=== PATIENT | male | born 2000 | race Caucasian/White ===

== ENCOUNTER 2024-02-01 20:29 | Emergency (ER) | payer SELFPAY ==
[2024-02-01 20:30] VITALS: BP 123/65; PULSE 107; RESP 18; TEMP 36.6; O2SAT 100; BMI 25.7
--- NOTE | 2024-02-01 20:41 | XR_ITS ---
PROCEDURE INFORMATION: Exam: XR Right Hand Exam date and time: 02/01/2024 8:44 PM Age: 23 years old Clinical indication: Injury or trauma; Other: Got mad, punched door; Blunt trauma (contusions or hematomas); Hand; Right; Patient HX: Patient got mad, punched door. ; Additional info: Hand swelling and pain TECHNIQUE: Imaging protocol: Radiologic exam of the right hand. Views: 3 or more views. COMPARISON: No relevant prior studies available. FINDINGS: Bones/joints: Comminuted fracture of the distal right 4th metacarpal head and segmental fractures of the right 5th metacarpal head. Soft tissues: Normal. IMPRESSION: 1. Fracture of the 4th metacarpal head. 2. Boxer's fracture of the 5th metacarpal head with comminution.
--- NOTE | 2024-02-01 21:15 | HMH.EDGENADL ---
Discharge Plan Disposition Patient Disposition: Home, Self-Care Prescriptions Prescriptions: No Action No Known Home Medications Referrals Follow up/Referrals: Isma Flores DO [Staff Physician] - See instructions Provider,Referral, [Primary Care Provider] - See instructions Activity Restrictions/Add. Instructions Additional Instructions/Restrictions: Take Tylenol 1000 mg every 6 hours (4 times daily) and ibuprofen 400 mg every 6 hours (4 times daily) as needed with food and water to prevent GI upset and kidney damage. Call Dr. Alcantara's office tomorrow for an appointment on 02/02. Clinical Impressions Clinical Impression: Open boxer's fracture Qualifiers: Encounter type: initial encounter Qualified Code(s): S62.339B - Displaced fracture of neck of unspecified metacarpal bone, initial encounter for open fracture Stand Alone Forms Stand Alone Forms: Work/School Release Discharge ED Provider: Nadeem Khoury General Adult HPI General Chief complaint: Extremity Injury, Upper Stated complaint: AO 01/31, right hand swelling Time Seen by Provider: 02/01/24 20:32 Mode of Arrival: Ambulatory Source of Information: Patient Limitations: No Limitations Description of Symptoms (Recalled from ER Triage Doc. by RN): Patient punched a doorway while frustrated about noon today. Had hand wrapped, pain increased in the evening. Swelling and pain. Sensation intact. Capillary refill of distal fingers < 3 seconds. History of Present Illness HPI narrative: 23-year-old male no relevant medical history presenting with right hand injury. States is frustrated, punched the wall and hit the door frame. Had significant pain and swelling since that time. Came in for further evaluation. Has taken ibuprofen with minimal relief. Please note that above description of symptoms, in this electronic medical record under categorization of recalled from ER triage doctor by RN are reflective of an initial nursing assessment, however, is not reflective of my full history and physical exam that was personally taken and clarified. Consequentially, this preceding description of symptoms, which may include the patient's categorized chief complaint in the EMR, do not reflect my personal clinical impression, and the ultimate description of history of present illness and patient stated complaints should be deferred to this section of the note. Unless stated otherwise or congruent with this section of the note, additional signs, symptoms, or incongruence should be interpreted as inaccurate with my clinical impression. Related Data Home Medications Medication Instructions Recorded Confirmed No Known Home Medications 09/01/18 09/01/18 Allergies Allergy/AdvReac Type Severity Reaction Status Date / Time INGREDIENT: NO KNOWN - NO Allergy Unknown Uncoded 09/01/18 15:13 KNOWN DRUG ALLERGY [facility] Disclaimer: The information contained in this section may have been updated after the patient was seen, as this information can be updated by other users. Social History Smoking Status: Current every day smoker alcohol intake: never substance use type: denies use current occupational status: student Travel in the last 8 weeks: None ROS Obtained: Yes All systems reviewed & no additional complaints except as documented Physical Exam General General appearance: alert and in no apparent distress Head Head exam: atraumatic and normocephalic Eye Eye exam: Present normal appearance, PERRL and EOMI ENT ENT exam: Present mucous membranes moist Neck Neck exam: Present normal inspection, full ROM and trachea midline Respiratory Respiratory exam: Absent respiratory distress, wheezes, stridor, accessory muscle use or prolonged expiratory phase Cardiovascular Cardiovascular exam: Present normal rhythm Abdominal Exam Abdominal exam: Present soft; Absent distention, tenderness, guarding, rebound or rigidity Extremities Exam Extremities exam: Present edema and other (Obvious deformity fourth and fifth metacarpals. Appears to be an open fracture at distal right fifth metacarpal. Range of motion intact) Neurological Exam Neurological exam: Present alert, oriented X3, CN II-XII intact and normal gait; Absent motor sensory deficit Skin Skin exam: Present warm and dry; Absent diaphoresis or erythema Medical Decision Making Medical Records Medical records reviewed: Yes I reviewed the patient's medical records. Anthony Inquiry Pt receiving controlled substance: No Anthony was queried for this patient: No Vital Signs: 02/01/24 20:30 02/01/24 22:18 Temperature 97.9 F 98.3 F Temperature Source Oral Oral Pulse Rate 69 Pulse Rate [Left Radial] 107 H Respiratory Rate 18 16 Blood Pressure 114/54 L Blood Pressure [Right Arm] 123/65 Blood Pressure Mean [Right Arm] 84 Blood Pressure Source Automatic Cuff Blood Pressure Position Sitting 02 Sat by Pulse Oximetry 100 Oxygen Delivery Method Room Air Room Air Orders (Tests/Meds): ED MEDICATIONS Discontinued Medications Generic Name Dose Route Start Last Admin Trade Name Freq PRN Reason Stop Dose Admin Cefazolin Sodium 2 gm 02/01/24 21:12 02/01/24 21:27 Cefazolin 2gm Vial IV 02/01/24 21:13 2 gm ONCE ONE Administration Ketamine HCl 20 mg 02/01/24 21:12 02/01/24 21:26 Ketamine 50mg/1ml Syringe IV 02/01/24 21:13 20 mg ONCE ONE Administration Lidocaine HCl 20 ml 02/01/24 21:12 02/01/24 22:15 Lidocaine 1% 20ml Mdv SQ 02/01/24 21:13 20 ml ONCE ONE Administration Ondansetron HCl 4 mg 02/01/24 21:12 02/01/24 21:22 Ondansetron 4mg/2ml Vial IV 02/01/24 21:13 4 mg ONCE ONE Administration ORDERS Category Date Time Status Hand XR right minimum 3 views [XR hand RT min 3V] Stat Exams 02/01/24 20:41 Completed Medical Decision Narrative: 23-year-old male no relevant medical history presenting with right hand injury. States is frustrated, punched the wall and hit the door frame. Had significant pain and swelling since that time. Came in for further evaluation. Has taken ibuprofen with minimal relief.. It should be noted that patient has , which is currently not at goal and complicates care. History was obtained via conversation with patient and significant other. On arrival, patient hemodynamically stable, alert, oriented x4, appropriate, GCS 15, moving all extremities spontaneously, pupils equal and reactive to light. Full physical exam performed and significant for significant swelling, open fracture. and obvious deformity of the right 4th and 5th metacarpal. Patient was given hematoma block with lidocaine, 20 mg ketamine, Zofran, 2 g Ancef for symptomatic management and correction of underlying abnormalities. Workup independently interpreted and significant for open fracture right fifth metacarpal and displaced, angulated fracture right fourth metacarpal. See radiology read for full review of final results. Orthopedist on-call was contacted, recommended cleaning, splinting, follow-up 2 days from now on 02/02. Patient was cleaned up, washed out, splinted in ulnar gutter splint with some dissociative ketamine. Given patient presentation, workup, history, this most likely represents open fracture right fifth metacarpal and right fourth metacarpal due to punching injury. Conversation was had with patient regarding home-going pain meds. Opted out of oxycodone and narcotic pain medication, I feel this is reasonable. Was given follow-up with orthopedics. Because patient at baseline without signs or symptoms of clinical decompensation, deemed appropriate for discharge. Results were relayed to patient who voiced understanding and were agreeable to outpatient management and follow up. I discussed my clinical impression with patient and answered all questions. At this time, the evidence for any other entities in the differential is insufficient to warrant any further testing or ED observation. This was explained as well. Advisory was given that persistent or worsening symptoms require further evaluation. I confirmed the understanding of this discussion. Procedures Orthopedic Fracture Reduction Fracture #1: Time Out Performed: No Side: right Fracture Reduction Location: metacarpal Analgesia: hematoma block Technique: direct manipulation Post-reduction neuro exam: intact and no change Post-reduction vascular exam: intact and no change Splint Applied: Yes Patient Tolerated Procedure: well Orthopedic Splinting/Casting Injury #1: Side: right Upper Extremity Injury Location: hand Upper Extremity Immobilizer: ulnar gutter Post Cast/Splinting Neuro Status: intact and no change Post Cast/Splinting Vasc Status: intact and no change Critical Care Critical Care Time Critical Care Time: No
[2024-02-01] MEDS: ONDANSETRON 4MG/2ML VIAL 4 MG IV (21:22)
--- NOTE | 2024-02-01 21:24 | PC.NURSE ---
Spoke with Sai with [facility] pharmacy for verification of medications and confirmation.
[2024-02-01] MEDS: KETAMINE 50MG/1ML SYRINGE 20 MG IV (21:26)
[2024-02-01] MEDS: CEFAZOLIN 2GM VIAL 2 GM IV (21:27)
[2024-02-01] MEDS: LIDOCAINE 1% 20ML MDV 20 ML SQ (22:15)
[2024-02-01 22:18] VITALS: BP 114/54; PULSE 69; RESP 16; TEMP 36.8; O2SAT 97
== END 2024-02-01 22:25 | disposition home or self-care (01) ==
PROVIDERS: Emergency Provider Emergency Medicine
DX: S62.396B Other fracture of fifth metacarpal bone, right hand, initial encounter for open fracture (principal); W22.8XXA Striking against or struck by other objects, initial encounter; S62.304B Unspecified fracture of fourth metacarpal bone, right hand, initial encounter for open fracture; F17.210 Nicotine dependence, cigarettes, uncomplicated
CPT/HCPCS: 29125; 73130; 96374; 96375; 99284; J0690; J2405

== ENCOUNTER 2024-02-04 14:45 | Emergency (ER) | payer SELFPAY ==
[2024-02-04 14:50] VITALS: BP 122/50; PULSE 102; RESP 20; TEMP 36.9; O2SAT 97; BMI 25.5
[2024-02-04 15:18] VITALS: BP 122/50; PULSE 102; RESP 20; TEMP 36.9; O2SAT 97
--- NOTE | 2024-02-04 15:22 | ED_ITS ---
Discharge Plan Disposition Patient Disposition: Home, Self-Care Condition: Good Prescriptions Prescriptions: New cephalexin 500 mg capsule 500 mg PO Q8H 10 Days Qty: 30 0RF Referrals Follow up/Referrals: Provider,Referral, MD [Primary Care Provider] - See instructions Activity Restrictions/Add. Instructions Additional Instructions/Restrictions: Follow up with Dr Ochoa Clinical Impressions Clinical Impression: Open boxer's fracture Instructions Patient Instructions: DI for Boxer's Fracture Discharge ED Provider: Zonia De La Garza [facility] [place] General Stated complaint: infection broken knuckles Mode of Arrival: Ambulatory Source of Information: Patient Limitations: No Limitations Time Seen by Provider: 02/04/24 15:22 Description of Symptoms (Recalled from Triage Doc. by RN): PATIENT STATES HE HAD AN OPEN FRACTURE TO RIGHT KNUCKLES A FEW DAYS AGO. HE REPORTS FOLLOWING UP WITH DR. OCHOA YESTERDAY AND WAS SUPPOSED TO GET SENT IN ANTIBIOTICS BUT STATES THEY WERE NEVER SENT IN. HE IS HERE FOR ANTIBIOTICS HEENT Symptoms (Recalled from RN notes): No Resp Symptoms (Recalled from RN notes): No Skin Symptoms (Recalled from RN notes): No MS Symptoms (Recalled from RN notes): Yes Functional Status (Recalled from RN notes): WNL History of Present Illness Provider Complaint: Patient has boxer's fracture of right hand. Diagnosed 01/31 in ER. Saw ortho (Dr Ochoa) 02/02. Dr Ochoa told him that since it was an open fracture he needed antibiotics but none were sent inadvertently. Tried to call their office but didn't get an answer and was scared to go without for the weekend. Onset (ago): day(s) (3) Location: right and upper extremity Treatments prior to arrival: splint Related Data Previous Rx's Medication Instructions Recorded cephalexin 500 mg capsule 500 mg PO Q8H 10 days #30 caps 02/04/24 Allergies Allergy/AdvReac Type Severity Reaction Status Date / Time No Known Allergies Allergy Verified 02/04/24 15:00 Worker's Comp Is this a Worker's Comp case?: No [facility] Disclaimer: The information contained in this section may have been updated after the patient was seen, as this information can be updated by other users. Social History Smoking Status: Current every day smoker alcohol intake: never substance use type: denies use current occupational status: student Travel in the last 8 weeks: None ROS Obtained: Yes All systems reviewed & no additional complaints except as documented Musculoskeletal Musculoskeletal: Reports as per HPI Physical Exam General General appearance: alert and in no apparent distress Respiratory Respiratory exam: Present normal lung sounds bilaterally; Absent respiratory distress Cardiovascular Cardiovascular exam: Present regular rate and normal rhythm; Absent JVD Extremities Exam Extremities exam: Present normal inspection, full ROM and normal capillary refill; Absent calf tenderness Expanded Upper Extremity Exam Right: Hand exam: Present other (splint in place from ortho - exam not done) Neurological Exam Neurological exam: Present alert and oriented X3 Psychiatric Psychiatric exam: Present normal affect and normal mood Skin Skin exam: Present warm, dry, intact and normal color Lymphatic Lymphatic Findings: no adenopathy Medical Decision Making Medical Records Medical records reviewed: Yes I reviewed the patient's medical records. Anthony Inquiry Pt receiving controlled substance: No Vital Signs: 02/04/24 14:50 02/04/24 15:18 Temperature 98.4 F 98.4 F Temperature Source Oral Pulse Rate 102 H Pulse Rate [Left Brachial] 102 H Respiratory Rate 20 20 Blood Pressure 122/50 L Blood Pressure [Left Arm] 122/50 L Blood Pressure Mean [Left Arm] 74 Blood Pressure Source [Left Arm] Automatic Cuff Blood Pressure Position [Left Arm] Sitting 02 Sat by Pulse Oximetry 97 Oxygen Delivery Method Room Air
== END 2024-02-04 15:38 | disposition home or self-care (01) ==
PROVIDERS: Emergency Provider Physician Assistant
DX: S62.316B Displaced fracture of base of fifth metacarpal bone, right hand, initial encounter for open fracture (principal); F17.210 Nicotine dependence, cigarettes, uncomplicated; W22.8XXA Striking against or struck by other objects, initial encounter
CPT/HCPCS: 99204; 99212; G0463

== ENCOUNTER 2024-02-10 13:24 | Outpatient (CLI) | payer SELFPAY ==
--- NOTE | 2024-02-10 13:27 | XR_ITS ---
FINAL REPORT CLINICAL HISTORY: Rt Hand Fx COMPARISON: 02/01/2024 FINDINGS: RIGHT HAND: 3 views of the right hand were obtained. A splint is now present on the lateral aspect of the wrist and hand. There is a fracture of the distal fourth metacarpal present, as well as a comminuted fracture of the distal fifth metacarpal. There is partially improved soft tissue swelling since the prior exam. The alignment of the fracture fragments remain stable. IMPRESSION: Fractures of the heads of the fourth and fifth metacarpals as described, with partially improved soft tissue swelling since the prior exam of January 31. Reviewed, Interpreted and Dictated by Twin Juarez III, MD Transcribed by Shelly Mead Authenticated and [facility]
== END 2024-02-10 23:59 ==
LOC: RAD 13:25
PROVIDERS: Visit Provider Physician Assistant Surgical
DX: S62.334 Displaced fracture of neck of fourth metacarpal bone, right hand (principal); S62.336B Displaced fracture of neck of fifth metacarpal bone, right hand, initial encounter for open fracture
CPT/HCPCS: 73130

== ENCOUNTER 2024-02-17 12:47 | Outpatient (CLI) | payer OTHER, SELFPAY ==
--- NOTE | 2024-02-17 12:51 | XR_ITS ---
FINAL REPORT CLINICAL HISTORY: Rt Hand Pain COMPARISON: 02/10/2024 FINDINGS: RIGHT HAND: 3 views of the right hand were obtained. The patient is in a splint. There are fractures of the distal fourth and fifth metacarpals with palmar angulation of the fracture fragments. The alignment of the fracture fragments is stable when compared to the prior film of February 09. There is however no significant callus formation identified. Visualized joint spaces are normally aligned. Soft tissues are unremarkable. IMPRESSION: Distal fourth and fifth metacarpal fractures with palmar angulation of the fragments in a splint. The alignment of the fracture fragments is stable, however there is no significant callus formation identified. Reviewed, Interpreted and Dictated by Twin Juarez III, MD Transcribed by Shelly Mead Authenticated and [facility]
== END 2024-02-17 23:59 ==
LOC: RAD 12:48
PROVIDERS: PCP Nurse Practitioner Family; Visit Provider Physician Assistant Surgical
DX: M79.641 Pain in right hand (principal); S62.330B Displaced fracture of neck of second metacarpal bone, right hand, initial encounter for open fracture
CPT/HCPCS: 73130

== ENCOUNTER 2024-03-09 13:14 | Outpatient (CLI) | payer OTHER, SELFPAY ==
--- NOTE | 2024-03-09 13:17 | XR_ITS ---
FINAL REPORT CLINICAL HISTORY: Right Hand fx COMPARISON: 02/01/2024 FINDINGS: Three views show comminuted fractures of the distal 4th and 5th metacarpals with mild volar angulation. Appearance is similar to previous. Displacement and comminution remain, most pronounced at the 5th metacarpal. No new abnormality is identified. IMPRESSION: Stable 4th and 5th metacarpal fractures without callus formation. Reviewed, Interpreted and Dictated by Yokasta Boudreaux MD Transcribed by Lisa Broussard Authenticated and [facility]
== END 2024-03-09 23:59 | disposition home or self-care (01) ==
LOC: RAD 13:14
PROVIDERS: PCP Nurse Practitioner Family; Visit Provider Physician Assistant Surgical
DX: M79.641 Pain in right hand (principal); S62.339 Displaced fracture of neck of unspecified metacarpal bone
CPT/HCPCS: 73130

== ENCOUNTER 2024-03-23 13:18 | Outpatient (CLI) | payer OTHER, SELFPAY ==
--- NOTE | 2024-03-23 13:27 | XR_ITS ---
FINAL REPORT CLINICAL HISTORY: Rt Hand Pain, punched door on january 20 COMPARISON: 03/09/2024 FINDINGS: LEFT HAND: 3 views of the left hand were obtained. There are fractures of the distal fourth and fifth metacarpals, stable when compared to the prior exam of March 09. No significant callus formation is identified. Visualized joint spaces are normally aligned. Soft tissues are unremarkable. IMPRESSION: Fractures of the distal fourth and fifth metacarpals, stable when compared to the prior exam. No significant callus formation is identified. Reviewed, Interpreted and Dictated by Twin Juarez III, MD Transcribed by Shelly Mead Authenticated and [facility]
== END 2024-03-23 23:59 | disposition home or self-care (01) ==
LOC: RAD 13:18
PROVIDERS: PCP Nurse Practitioner Family; Visit Provider Orthopaedic Surgery
DX: M79.641 Pain in right hand (principal); S62.306B Unspecified fracture of fifth metacarpal bone, right hand, initial encounter for open fracture
CPT/HCPCS: 73130

== ENCOUNTER 2024-04-20 14:23 | Outpatient (CLI) | payer OTHER, SELFPAY ==
--- NOTE | 2024-04-20 14:27 | XR_ITS ---
FINAL REPORT CLINICAL HISTORY: fx of 4th and 5th metacarpals COMPARISON: 03/23/2024 FINDINGS: RIGHT HAND: 3 views of the right hand were obtained. There are fractures of the distal fourth and fifth metacarpals, with palmar angulation of the distal fragments. The overall alignment is stable. No significant callus formation is identified. Visualized joint spaces are normally aligned. Soft tissues are unremarkable. IMPRESSION: Fractures of the distal fourth and fifth metacarpals, with palmar angulation of the distal fragments, overall stable alignment, however no significant callus formation is identified. Reviewed, Interpreted and Dictated by Twin Juarez III, MD Transcribed by Shelly Mead Authenticated and . [facility]
== END 2024-04-20 23:59 | disposition home or self-care (01) ==
LOC: RAD 14:24
PROVIDERS: PCP Nurse Practitioner Family; Visit Provider Orthopaedic Surgery
DX: M79.641 Pain in right hand (principal); S62.304A Unspecified fracture of fourth metacarpal bone, right hand, initial encounter for closed fracture; S62.306A Unspecified fracture of fifth metacarpal bone, right hand, initial encounter for closed fracture
CPT/HCPCS: 73130